=== PATIENT | female | born 1950 | race Caucasian/White ===

== ENCOUNTER → 2016-05-15 | Outpatient (CLI) | payer MEDICARE, OTHER ==
[2015-09-22 12:15] VITALS: BP 187/99
[~2016-05-15] MED LIST: AMLO5TAB4 PO; CARV3.12 PO; CLIN300C86 PO; COLE1TAB PO; COLE1TAB2 PO; Clonidine TD; Diphenoxylate Hcl/Atropine PO; IOHEXOL 240 MG/ML 50ML VIAL. ONE; IOHEXOL 300 MG/ML 75 ML VIAL. IV ONE; LIPA1CAP13 PO; LOSA100T6 PO; OMEP40CA5 PO; TRAM50TA PO; [UNRECOGNIZED DRUG - OTHER]; [UNRECOGNIZED DRUG - OTHER]
[2016-05-15 08:33] LABS: CREATININE 0.8 mg/dL (0.6-1.0); GFR 71.8
--- NOTE | 2016-05-15 10:15 | RAD ---
EXAM: Abdomen and pelvis CT with intravenous contrast. HISTORY: Right upper quadrant mass. Increased abdominal girth. Pain. TECHNIQUE: Computed tomographic images of the abdomen and pelvis were obtained following the administration of 72 cc Omnipaque 300 intravenous contrast. Multiplanar reformatting was performed. COMPARISON: 04/10/2014. FINDINGS: Evaluation of the lower thorax demonstrates two 3 mm nodular opacities within the right lower lobe (series 2, images 3 and 4). There is hepatic steatosis. There are 12 mm, 10 mm and 8 mm hypodense lesions within the right hepatic lobe. The liver is mildly enlarged. The gallbladder is surgically absent. There is common duct dilatation likely due to reservoir effect status post cholecystectomy. The pancreas, spleen, and adrenal glands are unremarkable. There is a 3.7 cm simple appearing cyst within the upper mid zone of the right kidney. There is a 10 mm simple appearing cyst within the upper pole the right kidney. There is a 4 mm suspected cortical cyst within the upper pole of the right kidney. No solid renal lesion is seen. There are findings consistent with partial colonic resection with an ileocolic anastomosis within the right lower quadrant and distal colonic anastomosis within the mid sigmoid colon. There is slight fatty stranding surrounding the anastomosis likely due to scarring. There is also segmental luminal narrowing at the level of the sigmoid anastomosis. No obstruction is seen. There is a tiny fat-containing ventral abdominal wall hernia. No pathologically enlarged lymph node is seen. There is aortic and aortic branch vessel atherosclerotic plaque. The bladder is decompressed. The uterus is surgically absent. There is no suspicious osseous lesion. There are a few benign bone islands. IMPRESSION: 1. Findings consistent with partial bowel resection, with suspected stable postoperative scarring around ileocolic and sigmoid anastomoses. There is segmental narrowing at the sigmoid anastomosis which is stable in appearance. No obstruction is seen. 2. Hepatomegaly and hepatic steatosis. 3. Small hypodense lesions within the liver, one of which may represent a hemangioma. The additional lesions are too small to characterize. In the absence of known malignancy, these are also likely cysts or hemangiomas. 4. Multiple hypodense lesions within the right kidney, the largest of which measures 3.7 cm and is consistent with a cyst. There is a 10 mm hypodense lesion within the upper pole the right kidney which is increased compared to the prior study. However, the attenuation of this lesion also favors a cyst. 5. Tiny fat containing ventral abdominal wall hernia. PQRS Compliance Statement: One or more of the following individualized dose reduction techniques were utilized for this examination: 1. Automated exposure control 2. Adjustment of the mA and/or kV according to patient size 3. Use of iterative reconstruction technique
== END | disposition home or self-care (01) ==
LOC: CT 08:03
PROVIDERS: ATTEND Surgery
DX: N28.1 Cyst of kidney, acquired (principal); K76.0 Fatty (change of) liver, not elsewhere classified; R16.0 Hepatomegaly, not elsewhere classified; K43.9 Ventral hernia without obstruction or gangrene; F17.200 Nicotine dependence, unspecified, uncomplicated; Z90.49 Acquired absence of other specified parts of digestive tract; Z90.710 Acquired absence of both cervix and uterus
CPT/HCPCS: 36415; 74177; 82565; Q9966; Q9967

== ENCOUNTER → 2018-01-08 | Outpatient (CLI) | payer MEDICARE ==
[2015-09-22 12:15] VITALS: BP 187/99
[~2018-01-08] MED LIST changes: +CLIN300C8 PO; -CLIN300C86 PO; -IOHEXOL 240 MG/ML 50ML VIAL. ONE; -IOHEXOL 300 MG/ML 75 ML VIAL. IV ONE; -LOSA100T6 PO; +LOSA100T7 PO
[2018-01-09 01:10] LABS: RHEUMATOID FACTOR <10.0 IU/mL (0.0-13.9); TRANSFERRIN 284 mg/dL (200-370)
[2018-01-09 21:09] LABS: CYCLIC CITRULLIN PEP AB 10 units (0-19)
== END | disposition home or self-care (01) ==
LOC: LAB 14:19
PROVIDERS: ATTEND Internal Medicine
DX: D64.9 Anemia, unspecified (principal); R51 Headache
CPT/HCPCS: 36415; 82728; 83540; 83550; 84466; 85651; 86038; 86140; 86200; 86431

== ENCOUNTER 2018-04-16 16:47 | Emergency (ER) | payer OTHER ==
[~2018-04-16] VITALS: Ht 162.6 cm; Wt 96.2 kg
[~2018-04-16 16:47] MED LIST changes: +LOSA100T14 PO; -LOSA100T7 PO
[2018-04-16] MEDS ORDERED: IV NORMAL SALINE 1,000ML 1,000 ML IV SCH (17:48)
[2018-04-16] MEDS ORDERED: IOHEXOL 240 MG/ML 50ML VIAL. ONE (17:55)
[2018-04-16 18:01] LABS: BASO # 0.1 x10^3/uL (0.0-0.2); BASO % 1 % (0-3); EOS % 0 % (0-3); HEMATOCRIT 42.9 % (36.0-47.0); HEMOGLOBIN 13.9 g/dL (12.0-15.5); LYMPH # 1.6 x10^3/uL (1.0-4.8); LYMPH % 11 % (24-48); MEAN CORPUSCULAR HEMOGLOBIN 29 pg (25-35); MEAN CORPUSCULAR HGB CONC 33 g/dL (31-37); MEAN CORPUSCULAR VOLUME 88 fL (79-100); MONO # 0.7 x10^3/uL (0.0-1.1); MONO % 5 % (0-9); NEUT # 12.3 x10^3uL (1.8-7.7); NEUT % 84 % (31-73); PLATELET COUNT 294 x10^3/uL (140-400); RED BLOOD COUNT 4.87 x10^6/uL (3.50-5.40); RED CELL DISTRIBUTION WIDTH 15.2 % (11.5-14.5); WHITE BLOOD COUNT 14.7 x10^3/uL (4.0-11.0)
[2018-04-16] MEDS ORDERED: ONDANSETRON PF 4 MG/2 ML VIAL. IV ONE ×3 (18:15→20:30)
--- NOTE | 2018-04-16 18:20 | PHYS DOC ---
Past History Past Medical History: Anemia, Arthritis, Hypertension, Other (KISHORE LAL MD) Past Surgical History: Appendectomy, Colectomy, , Other (KISHORE LAL MD) Additional Smoking Information: 4 per day Alcohol Use: Occasionally Drug Use: None (KISHORE LAL MD) Adult General Chief Complaint Chief Complaint: NAUSEA/VOMITING/DIARRHEA HPI HPI Patient is a 67 year old female who presents with complaining of nausea and vomiting and abdominal pain. Patient states she had more than 10 episodes of nonbloody vomiting for the last 24 hours with constant nausea and generalized abdominal cramping pain. Patient states she had a bowel movement before starting her pain yesterday and since then did not have any bowel movement or passing gas. Patient had history of abdominal surgery and intestinal obstruction previously. He denies fever and chills, chest pain, urinary symptom. (KISHORE LAL MD) Review of Systems Review of Systems Constitutional: Denies fever or chills [] Eyes: Denies change in visual acuity, redness, or eye pain [] HENT: Denies nasal congestion or sore throat [] Respiratory: Denies cough or shortness of breath [] Cardiovascular: No additional information not addressed in HPI [] GI: Reports abdominal pain, nausea, vomiting, constipation, denies bloody stools or diarrhea [] : Denies dysuria or hematuria [] Musculoskeletal: Denies back pain or joint pain [] Integument: Denies rash or skin lesions [] Neurologic: Denies headache, focal weakness or sensory changes [] Endocrine: Denies polyuria or polydipsia [] All other systems were reviewed and found to be within normal limits, except as documented in this note. (KISHORE LAL MD) Current Medications Current Medications Current Medications Medications (Trade) Dose Ordered Sig/Delisa Start Time Stop Time Status Last Admin Dose Admin Fentanyl Citrate (Fentanyl 2ml Vial) 50 mcg 1X ONCE 04/16/18 18:15 04/16/18 18:16 Iohexol (Omnipaque 240 Mg/ml) 50 ml STK-MED ONCE 04/16/18 17:55 04/16/18 17:56 DC Ondansetron HCl (Zofran) 4 mg 1X ONCE 04/16/18 18:15 04/16/18 18:16 Sodium Chloride 1,000 ml @ 1,000 mls/hr Q1H 04/16/18 17:48 04/16/18 18:47 (KISHORE LAL MD) Allergies Allergies Allergies Coded Allergies Type Severity Reaction Last Updated Verified No Known Drug Allergies 04/08/14 No (KISHORE LAL MD) Physical Exam Physical Exam Constitutional: Well developed, well nourished, moderate distress, non-toxic appearance. [] HENT: Normocephalic, atraumatic, oropharynx dry, no oral exudates, nose normal. [] Eyes: PERRLA, EOMI, conjunctiva normal, no discharge. [] Neck: Normal range of motion, no tenderness, supple, no stridor. [] Cardiovascular:Heart rate regular rhythm, no murmur [] Lungs & Thorax: Bilateral breath sounds clear to auscultation [] Abdomen: Bowel sounds hyperactive, soft, mildly distended abdomen with gas, generalized guarding, no masses, no pulsatile masses. [] Skin: Warm, dry, no erythema, no rash. [] Back: No tenderness, no CVA tenderness. [] Extremities: No tenderness, no cyanosis, no clubbing, ROM intact, no edema. [] Neurologic: Alert and oriented X 3, normal motor function, normal sensory function, no focal deficits noted. [] Psychologic: Affect normal, judgement normal, mood normal. [] (KISHORE LAL MD) Physical Exam Constitutional: Well developed, well nourished, appears uncomfortable HENT: Normocephalic, atraumatic, oropharynx dry Abdomen: Soft, Distended abdomen with diffuse tenderness on palpation Skin: Warm, dry, no erythema, no rash. [] Neurologic: Alert and oriented X 3, no focal deficits noted. [] (DIOR RAMIREZ DO) Current Patient Data Vital Signs Vital Signs Date Time Temp Pulse Resp B/P (MAP) Pulse Ox O2 Delivery O2 Flow Rate FiO2 04/16/18 16:53 98.4 89 20 97 Room Air Lab Results Laboratory Tests Test 04/16/18 17:48 White Blood Count 14.7 x10^3/uL (4.0-11.0) H Red Blood Count 4.87 x10^6/uL (3.50-5.40) Hemoglobin 13.9 g/dL (12.0-15.5) Hematocrit 42.9 % (36.0-47.0) Mean Corpuscular Volume 88 fL (79-100) Mean Corpuscular Hemoglobin 29 pg (25-35) Mean Corpuscular Hemoglobin Concent 33 g/dL (31-37) Red Cell Distribution Width 15.2 % (11.5-14.5) H Platelet Count 294 x10^3/uL (140-400) Neutrophils (%) (Auto) 84 % (31-73) H Lymphocytes (%) (Auto) 11 % (24-48) L Monocytes (%) (Auto) 5 % (0-9) Eosinophils (%) (Auto) 0 % (0-3) Basophils (%) (Auto) 1 % (0-3) Neutrophils # (Auto) 12.3 x10^3uL (1.8-7.7) H Lymphocytes # (Auto) 1.6 x10^3/uL (1.0-4.8) Monocytes # (Auto) 0.7 x10^3/uL (0.0-1.1) Eosinophils # (Auto) 0.0 x10^3/uL (0.0-0.7) Basophils # (Auto) 0.1 x10^3/uL (0.0-0.2) (KISHORE LAL MD) EKG EKG [] (KISHORE LAL MD) Radiology/Procedures Radiology/Procedures [] (KISHORE LAL MD) Radiology/Procedures PROCEDURE: CT ABD PELV W/ORAL&IV CONTRAST PQRS Compliance statement: One or more of the following individualized dose reduction techniques were utilized for this examination: 1. Automated exposure control. 2. Adjustment of the mA and/or kV according to patient size. 3. Use of iterative reconstruction technique. Indication:Omni 300 75cc: Abdominal pain, nausea and vomiting. Hx: Colostomy reversal, cholecystectomy, appendectomy TECHNIQUE: CT abdomen and pelvis with IV contrast with multiplanar reformats. COMPARISON: 05/15/2016 FINDINGS: Heart is normal in size. No pericardial or pleural effusion. Clear lung bases. Stable 6 mm low attenuating lesion in segment 7 of the liver most likely hemangioma. Otherwise, liver, spleen, pancreas, adrenals within normal limits. Status post cholecystectomy. Couple of simple cysts in the right kidney, the largest measuring 3.5 x 3.2 cm. No nephrolithiasis or hydronephrosis. No enlarged retroperitoneal or pelvic adenopathy. No free pelvic fluid or ascites. Anastomotic sutures are seen in the sigmoid colon. Colon is within normal limits. Ileocolic anastomosis in the right lower quadrant. Dilated small bowel loops are seen with air-fluid levels with a diameter measuring 4.1 cm. that there is a focal narrowing of the distal small bowel with dilation of the proximal bowel loop with fecal material. No pneumoperitoneum or pneumatosis intestinalis. Status post hysterectomy. Urinary bladder demonstrates no radiopaque stones. No suspicious bony lesion. IMPRESSION: 1. Findings of small bowel obstruction with transition point most likely in the distal small bowel proximal to the ileocolic anastomosis. Electronically signed by: Ciro Robles DO (04/16/2018 9:11 PM) [facility] PROCEDURE: PORTABLE CHEST 1V Indication:NGT placement TECHNIQUE:Portable AP chest X-ray and single AP view of the abdomen COMPARISON: None FINDINGS: NG tube is seen with its tip in the fundus of the stomach. Heart is normal in size. Lungs are clear. No abnormally dilated bowel loops. Visualized bony thorax within normal limits. IMPRESSION: Tip of the NG tube is in the fundus of the stomach. Electronically signed by: Ciro Robles DO (04/16/2018 10:46 PM) [facility] (DIOR RAMIREZ DO) Course & Med Decision Making Course & Med Decision Making Pertinent Labs and Imaging studies are pending. Evaluation of patient in ER showed 67-year-old female patient presented to ER with complaining of nausea and vomiting and abdominal pain and not having bowel movements and passing gas for the last 24 hours. Patient had history of previous abdominal surgery and intestinal obstruction. With fluid, Zofran, fentanyl was started. Labs and CT abdomen and pelvis is pending. Patient care transferred to Dr. Ramirez at 1800. (KISHORE LAL MD) Course & Med Decision Making Sign out received from Dr. Lal for patient with abdominal pain with N/V. Hx of prior SBO requiring surgical intervention. Labs reviewed. IVF hydration provided. Pain/nausea addressed. CT abd/pelvis pending. Patient seen and evaluated by myself. NGT placed for decompression. XR confirmed good placement. Patient requiring admission for further evaluation and treatment. Discussed with Dr. Dailey (hospitalist) who is in agreement with admission but requests would need to transfer to [place] for admission due to need for general surgery consultation. Discussed with Dr. Staley (Gen Surg at [place]) who is in agreement. Discussed findings and plan with patient and family, who acknowledge understanding and agreement. (DIOR RAMIREZ DO) Dragon Disclaimer Dragon Disclaimer This electronic medical record was generated, in whole or in part, using a voice recognition dictation system. (KISHORE LAL MD) Departure Departure: Impression: Primary Impression: Small bowel obstruction Disposition: 05 TRANSFER OTHER ([facility]) Admitting Physician: Wilfredo Dailye (DIOR RAMIREZ DO) Condition: STABLE Referrals: LUZ TINAJERO DO (PCP) KISHORE LAL MD Apr 16, 2018 18:20 DIOR RAMIREZ DO Apr 16, 2018 21:17
[2018-04-16 18:43] LABS: ALBUMIN 3.5 g/dL (3.4-5.0); ALBUMIN/GLOBULIN RATIO 0.7 (1.0-1.7); CREATININE 1.1 mg/dL (0.6-1.0); GFR 49.4; POTASSIUM 4.8 mmol/L (3.5-5.1); TOTAL BILIRUBIN 1.6 mg/dL (0.2-1.0); TOTAL PROTEIN 8.6 g/dL (6.4-8.2)
[2018-04-16] MEDS ORDERED: FAMOTIDINE 20 MG/2 ML VIAL IVP ONE (19:00)
[2018-04-16 20:00] LABS: BACTERIA,URINE MOD /HPF (0-FEW); BILIRUBIN,URINE MOD (NEG); CLARITY,URINE CLOUDY; COLOR,URINE AMBER; GLUCOSE,URINE NEG (NEG); NITRITE,URINE NEG (NEG); RBC,URINE TNTC /HPF (0-2); UROBILINOGEN,URINE 1 mg/dL (0.2 mg/dL)
[2018-04-16 20:01] LABS: AMORPHOUS SEDIMENT,UR PRESENT /HPF; SQUAMOUS EPITHELIAL CELL,UR MOD /LPF
[2018-04-16] MEDS ORDERED: MORPHINE SULFATE 4 MG/ML DISP.SYRIN. IV ONE (20:15)
[2018-04-16] MEDS ORDERED: IOHEXOL 300 MG/ML 75 ML VIAL. IV ONE (20:45)
--- NOTE | 2018-04-16 21:13 | RAD ---
PQRS Compliance statement: One or more of the following individualized dose reduction techniques were utilized for this examination: 1. Automated exposure control. 2. Adjustment of the mA and/or kV according to patient size. 3. Use of iterative reconstruction technique. Indication:Omni 300 75cc: Abdominal pain, nausea and vomiting. Hx: Colostomy reversal, cholecystectomy, appendectomy TECHNIQUE: CT abdomen and pelvis with IV contrast with multiplanar reformats. COMPARISON: 05/15/2016 FINDINGS: Heart is normal in size. No pericardial or pleural effusion. Clear lung bases. Stable 6 mm low attenuating lesion in segment 7 of the liver most likely hemangioma. Otherwise, liver, spleen, pancreas, adrenals within normal limits. Status post cholecystectomy. Couple of simple cysts in the right kidney, the largest measuring 3.5 x 3.2 cm. No nephrolithiasis or hydronephrosis. No enlarged retroperitoneal or pelvic adenopathy. No free pelvic fluid or ascites. Anastomotic sutures are seen in the sigmoid colon. Colon is within normal limits. Ileocolic anastomosis in the right lower quadrant. Dilated small bowel loops are seen with air-fluid levels with a diameter measuring 4.1 cm. that there is a focal narrowing of the distal small bowel with dilation of the proximal bowel loop with fecal material. No pneumoperitoneum or pneumatosis intestinalis. Status post hysterectomy. Urinary bladder demonstrates no radiopaque stones. No suspicious bony lesion. IMPRESSION: 1. Findings of small bowel obstruction with transition point most likely in the distal small bowel proximal to the ileocolic anastomosis. Electronically signed by: Ciro Robles DO (04/16/2018 9:11 PM) [facility]
[2018-04-16] MEDS ORDERED: LIDOCAINE 2% 20 ML VIAL. ONE (21:43)
[2018-04-16] MEDS ORDERED: LIDOCAINE 2% 20 ML VIAL. IJ ONE (22:00)
--- NOTE | 2018-04-16 22:49 | RAD ---
Indication:NGT placement TECHNIQUE:Portable AP chest X-ray and single AP view of the abdomen COMPARISON: None FINDINGS: NG tube is seen with its tip in the fundus of the stomach. Heart is normal in size. Lungs are clear. No abnormally dilated bowel loops. Visualized bony thorax within normal limits. IMPRESSION: Tip of the NG tube is in the fundus of the stomach. Electronically signed by: Ciro Robles DO (04/16/2018 10:46 PM) [facility]
[2018-04-16 23:34] VITALS: BP 129/71
== END 2018-04-16 23:43 | disposition short-term general hospital (02) ==
LOC: ER 16:47
DX: K56.609 Unspecified intestinal obstruction, unspecified as to partial versus complete obstruction (principal); R11.2 Nausea with vomiting, unspecified; F17.200 Nicotine dependence, unspecified, uncomplicated; M19.90 Unspecified osteoarthritis, unspecified site; I10 Essential (primary) hypertension; Z86.2 Personal history of diseases of the blood and blood-forming organs and certain disorders involving the immune mechanism; Z90.89 Acquired absence of other organs; Z90.49 Acquired absence of other specified parts of digestive tract; Z98.890 Other specified postprocedural states
CPT/HCPCS: 36415; 43752; 71045; 74177; 80053; 81001; 82553; 83690; 84484; 85025; 87086; 96361; 96374; 96375; 96376; 99285; J2060; J2270; J2405; J3010; J3490; Q9967; 87186; J2001; J7030

== ENCOUNTER → 2019-04-01 | Outpatient (CLI) | payer MEDICARE, OTHER ==
[~2019-04-01] MED LIST changes: +OMEP40CA45 PO; -OMEP40CA5 PO
--- NOTE | 2019-04-02 13:21 | CARD ---
MR#: [id number] Date of Study: 04/01/2019 Ordering Physician: LUZ TINAJERO, Referring Physician: LUZ TINAJERO Tech: Maria Luz Palafox LAURENCE APPROVED REPORT EXAM: Two-dimensional and M-mode echocardiogram with Doppler and color Doppler. Other Information Quality : AverageHR: 60bpm Rhythm : NSRTechnically limited study due to body habitus. INDICATION Murmur 2D DIMENSIONS RVDd2.9 (2.9-3.5cm)Left Atrium(2D)3.4 (1.6-4.0cm) IVSd1.3 (0.7-1.1cm)Aortic Root(2D)3.0 (2.0-3.7cm) LVDd4.8 (3.9-5.9cm)LVOT Diameter2.0 (1.8-2.4cm) PWd1.1 (0.7-1.1cm)LVDs2.8 (2.5-4.0cm) FS (%) 41.4 %SV78.1 ml LVEF(%)72.2 (>50%) M-Mode DIMENSIONS Left Atrium(MM)3.54 (2.5-4.0cm)Aortic Root3.21 (2.2-3.7cm) Aortic Valve AoV Peak Yoav.145.4cm/sAoV VTI29.8cm AO Peak GR.8.5mmHgLVOT Peak Yoav.109.2cm/s LVOT VTI 21.18cmAO Mean GR.4mmHg JASON (VMAX)2.20qs0END (VTI)2.23cm2 Mitral Valve MV E Tvmimadq69.7cm/sMV DECEL FUCS192sx MV A Odgkvldf98.6cm/sE/A Ratio0.8 Pulmonary Valve PV Peak Vcrnahym003.8cm/sPV Peak Grad.4mmHg Tricuspid Valve TR P. Lwjggozh134pm/sRAP WBOYPUEK5gkDb TR Peak Gr.86qkClZXVY01upFq LEFT VENTRICLE The left ventricle is normal size. There is mild concentric left ventricular hypertrophy. The left ve ntricular systolic function is normal and the ejection fraction is within normal range. The Ejection Fraction is 65-70%. There is grossly normal LV segmental wall motion. Technically very limited images Transmitral Doppler flow pattern is Grade I-abnormal relaxation pattern. RIGHT VENTRICLE The right ventricle is normal size. There is normal right ventricular wall thickness. The right ventr icular systolic function is normal. ATRIA The left atrium size is normal. The right atrium size is normal. The interatrial septum is intact wit h no evidence for an atrial septal defect or patent foramen ovale as noted on 2-D or Doppler imaging. AORTIC VALVE Not well visualized Doppler and Color Flow revealed no significant aortic regurgitation. There is no significant aortic valvular stenosis. MITRAL VALVE Not well visualized. There is no evidence of mitral valve prolapse. There is no mitral valve stenosis . Doppler and Color-flow revealed trace mitral regurgitation. TRICUSPID VALVE Not well visualized. Doppler and Color Flow revealed trace tricuspid regurgitation. The PA pressure w as estimated at 29 mmHg. There is no tricuspid valve prolapse or vegetation. There is no tricuspid va lve stenosis. PULMONIC VALVE The pulmonic valve is not well visualized. GREAT VESSELS The aortic root is normal in size. The ascending aorta is normal in size. The IVC is normal in size a nd collapses >50% with inspiration. PERICARDIAL EFFUSION There is no evidence of significant pericardial effusion. Critical Notification Critical Value: No <Conclusion> The left ventricular systolic function is normal and the ejection fraction is within normal range. Th e Ejection Fraction is 65-70%. There is grossly normal LV segmental wall motion. Technically very limited images No clear valvular disease noted, although the images are limited. Signed by : Eloy Rendon, Electronically Approved : 04/01/2019 09:35:23
== END | disposition home or self-care (01) ==
LOC: ECHO 08:14
PROVIDERS: ATTEND Internal Medicine
DX: I11.9 Hypertensive heart disease without heart failure (principal)
CPT/HCPCS: 93306

== ENCOUNTER 2019-05-05 10:39 | Emergency (ER) | payer MEDICARE, OTHER ==
[~2019-05-05] VITALS: Ht 162.6 cm; Wt 99.0 kg
[2019-05-05] MEDS ORDERED: IV NORMAL SALINE 1,000ML 1,000 ML IV SCH (10:44)
--- NOTE | 2019-05-05 10:49 | PHYS DOC ---
Past History Past Medical History: Anemia, Arthritis, Hypertension, Other Past Surgical History: Appendectomy, Colectomy, , Other Alcohol Use: Occasionally Drug Use: None Adult General Chief Complaint Chief Complaint: Chest pain HPI HPI Patient is a 68-year-old female with past medical history significant for COPD not requiring supplemental oxygen presents secondary to progressive left-sided chest pressure for the last 3 days it is currently rated 5/10 with radiation to left arm. No medications taken prior to arrival. Patient went to her primary care physician's office and was sent to the ER for further evaluation. In office her oxygen saturation was 97% on room air. Patient denies recent cough or congestion. No fever or chills. Review of Systems Review of Systems All other systems were reviewed and found to be within normal limits, except as documented in this note. Allergies Allergies Allergies Coded Allergies Type Severity Reaction Last Updated Verified No Known Drug Allergies 04/08/14 No Physical Exam Physical Exam Constitutional: Well developed, well nourished, slightly anxious, non-toxic appearance. [] HENT: Normocephalic, atraumatic, bilateral external ears normal, oropharynx moist, no oral exudates, nose normal. [] Eyes: PERRLA, EOMI, conjunctiva normal, no discharge. [] Neck: Normal range of motion, no tenderness, supple, no stridor. [] Cardiovascular:Heart rate regular rhythm, no murmur [] Lungs & Thorax: Bilateral breath sounds clear to auscultation [] Abdomen: Bowel sounds normal, soft, no tenderness, no masses, no pulsatile masses. [] Skin: Warm, dry, no erythema, no rash. [] Back: No tenderness, no CVA tenderness. [] Extremities: No tenderness, no cyanosis, no clubbing, ROM intact, no edema. [] Neurologic: Alert and oriented X 3, normal motor function, normal sensory function, no focal deficits noted. [] Psychologic: Affect normal, judgement normal, mood normal. [] EKG EKG EKG shows a sinus rhythm with occasional PVC, no ST elevation, heart rate 85, normal intervals. [] Radiology/Procedures Radiology/Procedures EXAM: PORTABLE CHEST 1V INDICATION: Chest pain. TECHNIQUE: Single view COMPARISON: 04/16/2018 FINDINGS: The enteric tube previously present has since been removed. The heart size is normal. The great vessels appear unremarkable. There is no hilar or mediastinal mass. The lungs are clear. There is no pleural effusion or pneumothorax. There are no significant osseous abnormalities. IMPRESSION: No active cardiopulmonary disease. [] Course & Med Decision Making Course & Med Decision Making Pertinent Labs and Imaging studies reviewed. (See chart for details) 1048: Patient seen for chest pain. We will give aspirin and get a cardiac work- up. Give 1 L IV fluid. Give sublingual nitro. EKG shows sinus rhythm with occasional PVC and no ST elevation. 1201: Patient's work-up is negative. Her chest pain is gone. Her blood pressure remains elevated but she has not taken her home medications. At this time we will discharge her home and she is to take her morning medications and follow-up with her doctor in 3 to 5 days for reevaluation. Dragon Disclaimer Dragon Disclaimer This electronic medical record was generated, in whole or in part, using a voice recognition dictation system. Departure Departure: Impression: Primary Impression: Atypical chest pain Additional Impression: Hypertension Disposition: 01 HOME, SELF-CARE Condition: IMPROVED Referrals: LUZ TINAJERO DO (PCP) Please follow-up in 3 to 5 days for reevaluation of blood pressure and chest pain. Problem Qualifiers YOUSUF ORTIZ DO May 05, 2019 10:49
[2019-05-05] MEDS: NITROGLYCERIN SUBLINGUAL 0.4 MG BOTTLE OF 25. SL PRN ×3 (10:50→11:00)
[2019-05-05] MEDS ORDERED: ASPIRIN 81 MG TAB.CHEW PO ONE (11:00)
[2019-05-05 11:15] LABS: BASO % 1 % (0-3); EOS # 0.1 x10^3/uL (0.0-0.7); EOS % 2 % (0-3); HEMATOCRIT 37.9 % (36.0-47.0); HEMOGLOBIN 12.6 g/dL (12.0-15.5); LYMPH # 1.5 x10^3/uL (1.0-4.8); LYMPH % 27 % (24-48); MEAN CORPUSCULAR HEMOGLOBIN 30 pg (25-35); MEAN CORPUSCULAR HGB CONC 33 g/dL (31-37); MEAN CORPUSCULAR VOLUME 90 fL (79-100); MONO # 0.4 x10^3/uL (0.0-1.1); MONO % 7 % (0-9); NEUT # 3.6 x10^3uL (1.8-7.7); NEUT % 64 % (31-73); PLATELET COUNT 153 x10^3/uL (140-400); RED BLOOD COUNT 4.21 x10^6/uL (3.50-5.40); RED CELL DISTRIBUTION WIDTH 15.7 % (11.5-14.5); WHITE BLOOD COUNT 5.6 x10^3/uL (4.0-11.0)
[2019-05-05 11:26] LABS: CALCIUM 8.7 mg/dL (8.5-10.1); CREATININE 0.8 mg/dL (0.6-1.0); GFR 71.1; POTASSIUM 3.8 mmol/L (3.5-5.1)
--- NOTE | 2019-05-05 11:37 | RAD ---
EXAM: PORTABLE CHEST 1V INDICATION: Chest pain. TECHNIQUE: Single view COMPARISON: 04/16/2018 FINDINGS: The enteric tube previously present has since been removed. The heart size is normal. The great vessels appear unremarkable. There is no hilar or mediastinal mass. The lungs are clear. There is no pleural effusion or pneumothorax. There are no significant osseous abnormalities. IMPRESSION: No active cardiopulmonary disease. Electronically signed by: Kiko So MD (05/05/2019 11:33 AM) [id number]
[2019-05-05 11:43] LABS: MAGNESIUM 1.7 mg/dL (1.8-2.4)
[2019-05-05 12:23] VITALS: BP 207/89
--- NOTE | 2019-05-05 17:46 | EKG ---
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
== END 2019-05-05 12:27 | disposition home or self-care (01) ==
LOC: ER 10:39
DX: R07.89 Other chest pain (principal); I10 Essential (primary) hypertension; M19.90 Unspecified osteoarthritis, unspecified site; Z86.2 Personal history of diseases of the blood and blood-forming organs and certain disorders involving the immune mechanism
CPT/HCPCS: 36415; 71045; 80048; 82553; 83735; 83880; 84484; 85025; 85610; 85730; 93005; 99285-25; J7030

== ENCOUNTER 2019-05-19 23:14 | Emergency (ER) | payer MEDICARE ==
[~2019-05-19] VITALS: Ht 162.6 cm; Wt 99.0 kg
[2019-05-19] MEDS ORDERED: ONDANSETRON PF 4 MG/2 ML VIAL. ONE (23:24)
[2019-05-19] MEDS ORDERED: MORPHINE SULFATE 10 MG/ML SYRINGE. ONE (23:24)
--- NOTE | 2019-05-19 23:30 | PHYS DOC ---
Past History Past Medical History: No Pertinent History, Anemia, Arthritis, COPD, GERD, Hypertension, UTI Past Surgical History: Appendectomy, Colectomy, , Hysterectomy, Oophorectomy, Other Past Surgical History History of 15 abdomen surgeries- Smoking: Cigarettes Alcohol Use: None Drug Use: None Adult General Chief Complaint Chief Complaint: "... I ve been having pain for years.. I have too many adhesions.. but the pain has been so bad the last 24 hours... I ve been vomiting and can't keep anything down.. I am on a no cut list.. because of all my adhesions...but I so sick... in so much pain..." HPI HPI Patient is a 68 year old female who presents with above hx and abdomen pain. Patient has history of previous small bowel and colon obstructions secondary from adhesions / and previous surgeries. Patient has history of previous incisional hernias. Patient estimates she has had approximately 15 abdomen surgeries including a . Patient has had no passage of gas in the last 24 hours. Patient reports feeling of distention and has been vomiting bile colored material all day. Patient denies any intake of bad food. Patient denies any specific ill contacts. Patient has not had any recent travel outside the [place] area. Has past medical history of anemia,diabetes, arthritis, hyper tension, tobacco abuse, COPD, chest pain, CADz and dysrhythmia. Pt. follows with Dr. Malorie Tinajero as primary.. Pt. in past followed with Dr. Soto he advised after last colonoscopy, colostomy surgery and colon repair to not get further surgeries unless emergent. Patient unsure of dates. Thinks lasts surgeries occurred in 2011 and took place at [facility]. Unsure of last surgeon's name. Had surgery by a Dr. Trevizo at [facility]. Has followed with here at [facility] with Cardiology 05/05/19 and repeat Cardiac Echo 04-01-2019 Dr. Rendon. Review of Systems Review of Systems Constitutional: Subjective complaints of fever or chills [] Eyes: Denies change in visual acuity, redness, or eye pain [] HENT: Chronic nasal congestion Respiratory: Complaints of cough or shortness of breath []Chronic Bronchitis/ COPD - no more than her base line. Cardiovascular: No additional information not addressed in HPI [] GI: Complaints of generalized abdominal pain, nausea, vomiting bile. No passage of gas per rectum x 24 hrs. ,. Denies bloody stools or diarrhea [] : Denies dysuria or hematuria [] Musculoskeletal: Complains of chronic back pain and joint pain [] Integument: Denies rash or skin lesions [] Neurologic: Denies headache, focal weakness or sensory changes [] Endocrine: Denies polyuria or polydipsia [] All other systems were reviewed and found to be within normal limits, except as documented in this note. Family History Family History Noncontributory Current Medications Current Medications Current Medications Medications (Trade) Dose Ordered Sig/Delisa Start Time Stop Time Status Last Admin Dose Admin Morphine Sulfate (Morphine 10mg Syringe) 10 mg STK-MED ONCE 05/19/19 23:24 05/19/19 23:25 DC Ondansetron HCl (Zofran) 4 mg STK-MED ONCE 05/19/19 23:24 05/19/19 23:25 DC Allergies Allergies Allergies Coded Allergies Type Severity Reaction Last Updated Verified No Known Drug Allergies 04/08/14 No Physical Exam Physical Exam Constitutional: in acute distress,ill appearance. Active vomiting or spitting up yellow gastric material. [] HENT: Normocephalic, atraumatic, bilateral external ears normal, oropharynx dry, no oral exudates, nose and left naris edematous Eyes: PERRLA, EOMI, conjunctiva normal, no discharge. Glasses Neck: Normal range of motion, no tenderness, supple, no stridor. [] Cardiovascular: Tachycardia Heart rate regular rhythm, no murmur []PMI to the left. Occasional PVC per monitor Lungs & Thorax: Bilateral breath sounds equal apex with scattered wheezes on auscultation. Decreased basilar sounds. [] Abdomen: Bowel sounds increased, tense abd., generalized tenderness, no masses, no pulsatile masses. []Rebound to left upper and right lower. Tympanic. Very distended. Multiple old surgery scars. Retching spitting up bile colored fluids Skin: Warm, diaphoretic, no erythema, no rash. [] Back: No tenderness, no CVA tenderness. [] Extremities: No tenderness, no cyanosis, no clubbing, ROM intact, no edema. Mild psoas on left and right. Neurologic: Alert and oriented X 3, moves extremities on request, has distal sensory, no focal deficits noted. [] Psychologic: Affect anxious, judgement normal, mood depressed. Some confusions and memory issues. EKG EKG EKG shows a sinus tachycardia with occasional PVC. Left axis deviation and a fascicular block. No findings of acute STEMI of contralateral changes[] Radiology/Procedures Radiology/Procedures [address] [address] IMAGING REPORT Signed PATIENT: NELI BOOTH ACCOUNT: [id number] : 1950 LOCATION: ER AGE: 68 SEX: F EXAM STATUS: REG ER ORD. PHYSICIAN: LINDA TREJO MD REASON: Suspect SBO distal Small bowel, ABDOMEN PAIN, N/V. X 2 DAYS. PROCEDURE: CT ABD PEL W/ORAL CONTRST ONLY INDICATION: Abdomen pain COMPARISON: April 16, 2018 TECHNIQUE: Axial CT images obtained through the abdomen and pelvis. One or more of the following individualized dose reduction techniques were utilized for this examination: 1. Automated exposure control; 2. Adjustment of the mA and/or kV according to patient size; 3. Use of iterative reconstruction technique. FINDINGS: Coronary artery calcific atherosclerosis partially seen. Enteric tube with tip in stomach. Calcific atherosclerosis. Fat-containing inguinal hernias are suspected. There are some vessels seen anterior to the liver which could be from collateral formation. No peripancreatic fluid collection. Spleen unremarkable. Urinary bladder is largely decompressed. No hydronephrosis. Cystic lesion right kidney. Postoperative changes to the distal colon. Dilated loops of small bowel identified with distal decompression degenerative changes the spine with multilevel central canal and neural foraminal stenosis. IMPRESSION: * Dilated small bowel loops with distal decompression which can be seen with small bowel obstruction. * There is some vessels seen anterior to the liver which could be secondary to collateral vessel formation. Would correlate for possible causes such as cirrhosis and portal hypertension. * Low-density lesions the right kidney which could be cystic in nature but incompletely evaluated on this exam. Electronically signed by: Marianne Carbajal MD (05/20/2019 5:18 AM) [id number] DICTATED AND SIGNED BY: MARIANNE CARBAJAL MD DATE: 05/20/19 05 CC: LINDA TREJO MD; LUZ TINAJERO DO ~ [[address] [address] IMAGING REPORT Signed PATIENT: NELI BOOTH ACCOUNT: [id number] : 1950 LOCATION: ER AGE: 68 SEX: F EXAM STATUS: REG ER ORD. PHYSICIAN: LINDA TREJO MD REASON: ABDOMEN PAIN, N/V, X 2 DAYS PROCEDURE: ACUTE ABDOMEN SERIES INDICATION: Abdomen pain COMPARISON: April 16, 2018 IMPRESSION: 4 views of chest and abdomen obtained. Calcific atherosclerosis. No new region of focal airspace consolidation. Air scattered throughout large and small bowel in a nonspecific but not grossly obstructive pattern. Electronically signed by: Marianne Carbajal MD (05/20/2019 12:11 AM) [id number] DICTATED AND SIGNED BY: MARIANNE CARBAJAL MD DATE: 05/20/1910 CC: LINDA TREJO MD; LUZ TINAJERO DO ~ ][address] [address] IMAGING REPORT Signed PATIENT: NELI BOOTH ACCOUNT: [id number] : 1950 LOCATION: ER AGE: 68 SEX: F EXAM STATUS: REG ER ORD. PHYSICIAN: LINDA TREJO MD REASON: NG PLACEMENT. PROCEDURE: KUB INDICATION: Enteric tube placement COMPARISON: Previous day IMPRESSION: Single view abdomen obtained. Single enteric tube with tip at left upper quadrant the abdomen at expected location of the stomach. Electronically signed by: Marianne Carbajal MD (05/20/2019 1:35 AM) [id number] DICTATED AND SIGNED BY: MARIANNE CARBAJAL MD DATE: 05/20/19 013 CC: LINDA TREJO MD; LUZ TINAJERO Course & Med Decision Making Course & Med Decision Making Pertinent Labs and Imaging studies reviewed. (See chart for details) I NG placed [id number] hrs. Place on suction, Use of Lidocaine via MAD, jell and Afrin. NG adequate position by Abd. film. Discussed with Dr. Dailey and Dr. Yeboah- pt presentation, testing and tx. plan. Pt. to be transferred to [facility]. Continue NG interment suction. 0530 hrs. Impression.: 1. Abdomen Pain 2. Nausea / Vomiting- Ileus appears Small Bowel 3. DM = gluc. 150 4. Elevated BUN/ Creat 27/1.6 Dehydrated 5. UTI 6. Elevated D Pepe - 0.6, 1.9 T and Alk. Phos 169 7. Elevated Lactic Acid = 3.2 repeat = 2.0 8. Leukocytosis 15.4 & 69 Segs 9. Hx. COPD 10.Hx CADz [] Dragon Disclaimer Dragon Disclaimer This electronic medical record was generated, in whole or in part, using a voice recognition dictation system. Departure Departure: Disposition: 01 HOME/RESIDENCE PRIOR TO ADM Condition: STABLE Referrals: LUZ TINAJERO DO (PCP) Dragon Disclaimer This chart was dictated in whole or in part using Voice Recognition software in a busy, high-work load, and often noisy Emergency Department environment. It may contain unintended and wholly unrecognized errors or omissions. Dragon Disclaimer This chart was dictated in whole or in part using Voice Recognition software in a busy, high-work load, and often noisy Emergency Department environment. It may contain unintended and wholly unrecognized errors or omissions. LINDA TREJO MD May 19, 2019 23:30
[2019-05-19] MEDS ORDERED: FAMOTIDINE 20 MG/2 ML VIAL IVP ONE (23:45)
[2019-05-19] MEDS ORDERED: IV RINGERS SOLUTION,LACTATED 1,000 ML IV SCH (23:45)
[2019-05-19] MEDS ORDERED: ONDANSETRON PF 4 MG/2 ML VIAL. IVP ONE (23:45)
[2019-05-20 00:03] LABS: BASO # 0.1 x10^3/uL (0.0-0.2); BASO % 0 % (0-3); EOS # 0.1 x10^3/uL (0.0-0.7); EOS % 0 % (0-3); HEMATOCRIT 46.1 % (36.0-47.0); HEMOGLOBIN 15.4 g/dL (12.0-15.5); LYMPH # 2.6 x10^3/uL (1.0-4.8); LYMPH % 17 % (24-48); MEAN CORPUSCULAR HEMOGLOBIN 30 pg (25-35); MEAN CORPUSCULAR HGB CONC 34 g/dL (31-37); MEAN CORPUSCULAR VOLUME 90 fL (79-100); MONO # 1.4 x10^3/uL (0.0-1.1); MONO % 9 % (0-9); NEUT # 11.3 x10^3uL (1.8-7.7); NEUT % 73 % (31-73); PLATELET COUNT 263 x10^3/uL (140-400); RED BLOOD COUNT 5.12 x10^6/uL (3.50-5.40); RED CELL DISTRIBUTION WIDTH 15.9 % (11.5-14.5)
[2019-05-20 00:10] LABS: CALCIUM 10.2 mg/dL (8.5-10.1); CREATININE 1.6 mg/dL (0.6-1.0); POTASSIUM 4.7 mmol/L (3.5-5.1)
[2019-05-20 00:12] LABS: BARBITURATES NEG (NEG); BENZODIAZEPINES NEG (NEG); CANNABINOIDS NEG (NEG); COCAINE NEG (NEG); METHADONE NEG (NEG); OPIATES NEG (NEG); PHENCYCLIDINE NEG (NEG)
[2019-05-20 00:14] LABS: AMPHETAMINE/METHAMPHETAMINE NEG (NEG)
--- NOTE | 2019-05-20 00:14 | RAD ---
INDICATION: Abdomen pain COMPARISON: April 16, 2018 IMPRESSION: 4 views of chest and abdomen obtained. Calcific atherosclerosis. No new region of focal airspace consolidation. Air scattered throughout large and small bowel in a nonspecific but not grossly obstructive pattern. Electronically signed by: Arthur Carbajal MD (05/20/2019 12:11 AM) [id number]
[2019-05-20 00:16] LABS: DIRECT BILIRUBIN 0.6 mg/dL (0.0-0.2); TOTAL BILIRUBIN 1.9 mg/dL (0.2-1.0)
[2019-05-20 00:21] LABS: CLARITY,URINE CLEAR; COLOR,URINE YELLOW
--- NOTE | 2019-05-20 00:21 | EKG ---
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
[2019-05-20 00:22] LABS: BACTERIA,URINE FEW /HPF (0-FEW); BILIRUBIN,URINE NEG (NEG); GLUCOSE,URINE NEG (NEG); NITRITE,URINE POS (NEG); RBC,URINE 0 /HPF (0-2); SQUAMOUS EPITHELIAL CELL,UR MOD /LPF; UROBILINOGEN,URINE 0.2 mg/dL (0.2 mg/dL)
[2019-05-20] MEDS ORDERED: IOHEXOL 240 MG/ML 50ML VIAL. PO ONE (00:30)
[2019-05-20] MEDS ORDERED: CONTRAST GIVEN MC PRN (00:30)
[2019-05-20] MEDS ORDERED: IOHEXOL 300 MG/ML 75 ML VIAL. IV ONE (00:30)
[2019-05-20] MEDS ORDERED: OXYMETAZOLINE 0.05% NASAL SPRAY 30ML BOTTLE. NS ONE ×2 (00:39→01:30)
[2019-05-20 01:26] LABS: % BANDS 8 % (0-9); % LYMPHS 20 % (24-48); % MONOS 3 % (0-10); % SEGS 69 % (35-66); PLT ESTIMATE ADEQUATE (ADEQUATE)
[2019-05-20 01:28] LABS: WHITE BLOOD COUNT 15.4 x10^3/uL (4.0-11.0)
[2019-05-20] MEDS ORDERED: IV RINGERS SOLUTION,LACTATED 1,000 ML IV ONE ×2 (01:30)
[2019-05-20] MEDS ORDERED: BARIUM SULFATE 2.1% 450 ML SUSP PO ONE (01:30)
[2019-05-20] MEDS ORDERED: MORPHINE SULFATE 10 MG/ML SYRINGE. SQ ONE (01:30)
[2019-05-20] MEDS ORDERED: diphenhydrAMINE 50 MG/ML VIAL IVP ONE (01:30)
[2019-05-20] MEDS ORDERED: cefTRIAXone SODIUM 1 GM VIAL ONE (01:35)
[2019-05-20] MEDS ORDERED: IV NORMAL SALINE 50ML 50 ML ONE (01:35)
--- NOTE | 2019-05-20 01:38 | RAD ---
INDICATION: Enteric tube placement COMPARISON: Previous day IMPRESSION: Single view abdomen obtained. Single enteric tube with tip at left upper quadrant the abdomen at expected location of the stomach. Electronically signed by: Arthur Carbajal MD (05/20/2019 1:35 AM) [id number]
--- NOTE | 2019-05-20 05:20 | RAD ---
INDICATION: Abdomen pain COMPARISON: April 16, 2018 TECHNIQUE: Axial CT images obtained through the abdomen and pelvis. One or more of the following individualized dose reduction techniques were utilized for this examination: 1. Automated exposure control; 2. Adjustment of the mA and/or kV according to patient size; 3. Use of iterative reconstruction technique. FINDINGS: Coronary artery calcific atherosclerosis partially seen. Enteric tube with tip in stomach. Calcific atherosclerosis. Fat-containing inguinal hernias are suspected. There are some vessels seen anterior to the liver which could be from collateral formation. No peripancreatic fluid collection. Spleen unremarkable. Urinary bladder is largely decompressed. No hydronephrosis. Cystic lesion right kidney. Postoperative changes to the distal colon. Dilated loops of small bowel identified with distal decompression degenerative changes the spine with multilevel central canal and neural foraminal stenosis. IMPRESSION: * Dilated small bowel loops with distal decompression which can be seen with small bowel obstruction. * There is some vessels seen anterior to the liver which could be secondary to collateral vessel formation. Would correlate for possible causes such as cirrhosis and portal hypertension. * Low-density lesions the right kidney which could be cystic in nature but incompletely evaluated on this exam. Electronically signed by: Arthur Carbajal MD (05/20/2019 5:18 AM) [id number]
[2019-05-20 08:00] VITALS: BP 170/87
[2019-05-20] MEDS ORDERED: MORPHINE SULFATE 4 MG/ML DISP.SYRIN. IV ONE (08:15)
== END 2019-05-20 08:13 | disposition home or self-care (01) ==
LOC: ER 23:14
DX: E86.0 Dehydration (principal); N39.0 Urinary tract infection, site not specified; D72.829 Elevated white blood cell count, unspecified; R74.0 Nonspecific elevation of levels of transaminase and lactic acid dehydrogenase [LDH]; J44.9 Chronic obstructive pulmonary disease, unspecified; K21.9 Gastro-esophageal reflux disease without esophagitis; I10 Essential (primary) hypertension; F17.210 Nicotine dependence, cigarettes, uncomplicated; Z90.49 Acquired absence of other specified parts of digestive tract; Z90.710 Acquired absence of both cervix and uterus
CPT/HCPCS: 36415; 74018; 74022; 74176; 80048; 80076; 80307; 81001; 82150; 82550; 83605; 83690; 84484; 85007; 85025; 85610; 85730; 87086; 93005; 96361; 96365; 96366; 96367; 96372; 96375; 99285; J0696; J1200; J2270; J2405; J3490; J7120

== ENCOUNTER → 2019-10-10 | Outpatient (CLI) | payer MEDICARE ==
[~2019-10-10] MED LIST changes: +BUDE10.2 IH; +CELE200C PO; +CLON-276 PO; +DIPH1TAB PO; +DIPH25CA58 PO; +DOXE6TAB3 PO; +FLUO20CA16 PO; +LEVO50TA72 PO; +MAGN250T10 PO; +QUET25TA5 PO; +RIFA550T4 PO; +TELM80TA PO; +UMEC1DIS IH; +ZINC50TA39 PO
== END | disposition home or self-care (01) ==
LOC: LAB 10:03
PROVIDERS: ATTEND Registered Nurse
DX: Z01.812 Encounter for preprocedural laboratory examination (principal); Z20.828 Contact with and (suspected) exposure to other viral communicable diseases; H26.9 Unspecified cataract
CPT/HCPCS: U0003-CS

== ENCOUNTER → 2019-10-14 | Day surgery (SDC) | payer MEDICARE ==
[~2019-10-14] MED LIST changes: +BALANCED SALT IRRIG OPHTH SOLN 15 ML BOTTLE. IRR ONE; +CATARACT OPHTH GEL 0.5 ML SYRINGE. OD ONE; +CHONDROIT-SOD-HYALURONATE KIT. OD ONE; +EPINEPHrine AMPULE 0.5 MG in BALANCED SALT IRRIG SOLN PLUS 500 ML IO ONE; +ERYTHROMYCIN 0.5% OPHTH OINTMENT 1GM TUBE. OD ONE; +HYALURONIDASE 75UNITS in LIDOCAINE 2% PF OPHTH 10 ML SYRINGE. OD ONE; +HYALURONIDASE 75UNITS in LIDOCAINE 2% PF OPHTH 10 ML SYRINGE. ONE; +IPRATRPIUM/ALBUTEROL 0.5/2.5MG 3 ML NEBU. NEB PRN; +IV RINGERS SOLUTION,LACTATED 1,000 ML IV SCH; +KETOROLAC TROMETHAMINE 0.5% OPHTH SOLUTION BOTTLE. OD SCH; +KETOROLAC TROMETHAMINE 0.5% OPHTH SOLUTION BOTTLE. ONE; +LIDO/EPI IN BSS OPHTH 4 ML SYRINGE OD ONE; +MIDAZOLAM HCL PF 2 MG/2 ML VIAL. IV ONE; +MOXIFLOXACIN 0.5% OPHTH SOLUTION 3ML BOTTLE. OD SCH; +ONDANSETRON PF 4 MG/2 ML VIAL. IV PRN; +PHENYLEPHRINE 10% OPHTH SOLUTION 5ML BOTTLE. OD PRN; +POVIDONE-IODINE 5% OPHTH SOLUTION 30ML BOTTLE. OD ONE; +PROPOFOL 10,000 MCG/ML (20ML) VIAL IV ONE; +TETRACAINE 0.5% OPHTH SOLUTION 4ML BOTTLE. OD ONE; +TETRACAINE 0.5% OPHTH SOLUTION 4ML BOTTLE. OU ONE; +prednisoLONE ACETATE 1% OPHTH SUSPENSION 5ML BOTTLE. OD SCH; +prednisoLONE ACETATE 1% OPHTH SUSPENSION 5ML BOTTLE. ONE
[2019-10-14] MEDS: MOXIFLOXACIN 0.5% OPHTH SOLUTION 3ML BOTTLE. OD SCH ×3 (08:15→08:25)
[2019-10-14 09:50] VITALS: BP 139/57
--- NOTE | 2019-11-18 11:56 | PDOC4 ---
Phaco IOL/IFIS w/o Ring/OD Date of Procedure: Nov 18, 2019 Preoperative Diagnosis: 1. Senile Cataract, Right Eye 2. Anticipated Intraoperative Floppy Iris Syndrome Postoperative Diagnosis: 1. Senile Cataract, Right Eye 2. Intraoperative Floppy Iris Syndrome Anesthesia: Local (Block) with monitored anesthesia care Surgeon: Stefano Dobson D.O. Procedure: Procdeure: Right Phacoemulsification with intraocular lens implant Findings: Senile Cataract Intraoperative Floppy Iris Syndrome Indications: Worsening vision interfering with patient's lifestyle Narrative: After discussing the risks, complications and alternatives, including but not limited to loss of vision, infection, bleeding, swelling, anesthetic reaction, capsule rupture with vitreous loss, etc., the patient was given a peribulbar block under mild IV sedation and cardiac monitoring. Pressure was applied to the eye for approximately 10 minutes. The patient was transferred to the main operating room and was prepped and draped in the usual sterile fashion and positioned under the microscope. A lid speculum was placed. A temporal clear corneal incision was made with a keratome and epi-Shugarcaine was injected into the anterior chamber, this was followed by injecting viscoelastic. A side port incision was made. A continuous tear capsulorrhexis was was performed, then hydrodissection was accomplished with balanced salt solution. The phacoemuls ification needle was placed in the eye and the nucleus was emulsified. The remaining cortical material was removed with the irrigation and aspiration apparatus. The capsule was polished as needed. The posterior capsule was noted to be clean and intact. Viscoelastic was injected into the eye inflating the capsular bag. An intraocular lens was injected into the eye, unfolding as desired and was positioned in the capsular bag. The viscoelastic was aspirated from the eye. The wound edges were hydrated with balanced salt solution and there were no leaks. Viscoelastic was injected over the limbal incisions. Antibiotic and steroid were placed on the eye. The lid speculum was removed, the eye patched shut and a Sweeney shield applied. There were no compilations and the patient was taken to the PACU in good condition. STEFANO DOBSON DO Nov 18, 2019 11:56
== END | disposition home or self-care (01) ==
LOC: SURG 07:39
PROVIDERS: ATTEND Ophthalmology
DX: H25.11 Age-related nuclear cataract, right eye (principal); H21.81 Floppy iris syndrome; E11.36 Type 2 diabetes mellitus with diabetic cataract; I10 Essential (primary) hypertension; J44.9 Chronic obstructive pulmonary disease, unspecified; M19.90 Unspecified osteoarthritis, unspecified site; F17.210 Nicotine dependence, cigarettes, uncomplicated; F32.9 Major depressive disorder, single episode, unspecified; Z98.890 Other specified postprocedural states; Z79.899 Other long term (current) drug therapy; Z88.8 Allergy status to other drugs, medicaments and biological substances; Z90.49 Acquired absence of other specified parts of digestive tract; Z91.041 Radiographic dye allergy status
CPT/HCPCS: 66984; J0171; J2704; V2632

== ENCOUNTER → 2019-10-31 | Outpatient (CLI) | payer MEDICARE ==
[2019-10-14 09:50] VITALS: BP 139/57
[~2019-10-31] MED LIST changes: -BALANCED SALT IRRIG OPHTH SOLN 15 ML BOTTLE. IRR ONE; -CATARACT OPHTH GEL 0.5 ML SYRINGE. OD ONE; -CHONDROIT-SOD-HYALURONATE KIT. OD ONE; -EPINEPHrine AMPULE 0.5 MG in BALANCED SALT IRRIG SOLN PLUS 500 ML IO ONE; -ERYTHROMYCIN 0.5% OPHTH OINTMENT 1GM TUBE. OD ONE; -HYALURONIDASE 75UNITS in LIDOCAINE 2% PF OPHTH 10 ML SYRINGE. OD ONE; -HYALURONIDASE 75UNITS in LIDOCAINE 2% PF OPHTH 10 ML SYRINGE. ONE; -IPRATRPIUM/ALBUTEROL 0.5/2.5MG 3 ML NEBU. NEB PRN; -IV RINGERS SOLUTION,LACTATED 1,000 ML IV SCH; -KETOROLAC TROMETHAMINE 0.5% OPHTH SOLUTION BOTTLE. OD SCH; -KETOROLAC TROMETHAMINE 0.5% OPHTH SOLUTION BOTTLE. ONE; -LIDO/EPI IN BSS OPHTH 4 ML SYRINGE OD ONE; -MIDAZOLAM HCL PF 2 MG/2 ML VIAL. IV ONE; -MOXIFLOXACIN 0.5% OPHTH SOLUTION 3ML BOTTLE. OD SCH; -ONDANSETRON PF 4 MG/2 ML VIAL. IV PRN; -PHENYLEPHRINE 10% OPHTH SOLUTION 5ML BOTTLE. OD PRN; -POVIDONE-IODINE 5% OPHTH SOLUTION 30ML BOTTLE. OD ONE; -PROPOFOL 10,000 MCG/ML (20ML) VIAL IV ONE; -TETRACAINE 0.5% OPHTH SOLUTION 4ML BOTTLE. OD ONE; -TETRACAINE 0.5% OPHTH SOLUTION 4ML BOTTLE. OU ONE; -prednisoLONE ACETATE 1% OPHTH SUSPENSION 5ML BOTTLE. OD SCH; -prednisoLONE ACETATE 1% OPHTH SUSPENSION 5ML BOTTLE. ONE
== END | disposition home or self-care (01) ==
LOC: LAB 08:38
PROVIDERS: ATTEND Registered Nurse
DX: Z20.828 Contact with and (suspected) exposure to other viral communicable diseases (principal)
CPT/HCPCS: U0003-CS

== ENCOUNTER → 2019-11-04 | Day surgery (SDC) | payer MEDICARE ==
[~2019-11-04] MED LIST changes: +BALANCED SALT IRRIG OPHTH SOLN 15 ML BOTTLE. IRR ONE; +CATARACT OPHTH GEL 0.5 ML SYRINGE. OS ONE; +CHONDROIT-SOD-HYALURONATE KIT. OS ONE; +EPINEPHrine AMPULE 0.5 MG in BALANCED SALT IRRIG SOLN PLUS 500 ML IO ONE; +ERYTHROMYCIN 0.5% OPHTH OINTMENT 1GM TUBE. OS ONE; +HYALURONIDASE 75UNITS in LIDOCAINE 2% PF OPHTH 10 ML SYRINGE. OS ONE; +IPRATRPIUM/ALBUTEROL 0.5/2.5MG 3 ML NEBU. NEB PRN; +IV RINGERS SOLUTION,LACTATED 1,000 ML IV SCH; +KETOROLAC TROMETHAMINE 0.5% OPHTH SOLUTION BOTTLE. ONE; +KETOROLAC TROMETHAMINE 0.5% OPHTH SOLUTION BOTTLE. OS SCH; +LIDO/EPI IN BSS OPHTH 4 ML SYRINGE OS ONE; +MIDAZOLAM HCL PF 2 MG/2 ML VIAL. IV ONE; +MOXIFLOXACIN 0.5% OPHTH SOLUTION 3ML BOTTLE. OS SCH; +ONDANSETRON PF 4 MG/2 ML VIAL. IV PRN; +POVIDONE-IODINE 5% OPHTH SOLUTION 30ML BOTTLE. OS ONE; +PROPOFOL 10,000 MCG/ML (20ML) VIAL IV ONE; +TETRACAINE 0.5% OPHTH SOLUTION 4ML BOTTLE. OS ONE; +TETRACAINE 0.5% OPHTH SOLUTION 4ML BOTTLE. OU ONE; +prednisoLONE ACETATE 1% OPHTH SUSPENSION 5ML BOTTLE. ONE; +prednisoLONE ACETATE 1% OPHTH SUSPENSION 5ML BOTTLE. OS SCH
[2019-11-04] MEDS: MOXIFLOXACIN 0.5% OPHTH SOLUTION 3ML BOTTLE. OS SCH ×3 (08:15→08:26)
--- NOTE | 2019-11-04 09:18 | PDOC4 ---
Phaco/IFIS w/o Ring/OS Date of Procedure: Nov 04, 2019 Preoperative Diagnosis: 1. Senile Cataract, Left Eye 2. Anticipated Intraoperative Floppy Iris Syndrome Posoperative Diagnosis: 1. Senile Cataract, Left Eye 2. Intraoperative Floppy Iris Syndrome Anesthesia: Local (Block) with monitored anesthesia care Surgeon: Stefano Dobson D.O. Procedure: Procdeure: Left Phacoemulsification with Intraocular Lens Implant Findings: Senile Cataract Intraoperative Floppy Iris Syndrome Indications: Worsening vision interfering with patient's lifestyle Narrative: After discussing the risks, complications and alternatives, including but not limited to loss of vision, infection, bleeding, swelling, anesthetic reaction, capsule rupture with vitreous loss, etc., the patient was given a peribulbar block under mild IV sedation and cardiac monitoring. Pressure was applied to the eye for approximately 10 minutes. The patient was transferred to the main operating room and was prepped and draped in the usual sterile fashion and positioned under the microscope. A lid speculum was placed. A temporal clear corneal incision was made with a keratome and epi-Shugarcaine was injected into the anterior chamber, this was followed by injecting viscoelastic. A side port incision was made. A continuous tear capsulorrhexis was performed, then hydrodissection was accomplished with balanced salt solution. The phacoemulsification needle was placed in the eye and the nucleus was emulsified. The remaining cortical material was removed with the irrigation and aspiration apparatus. The capsule was polished as needed. The posterior capsule was noted to be clean and intact. Viscoelastic was injected into the eye inflating the capsular bag. An intraocular lens was injected into the eye, unfolding as desired and was positioned in the capsular bag. The viscoelastic was aspirated from the eye. The wound edges were hydrated with balanced salt solution and there were no leaks. Viscoelastic was injected over the limbal incisions. Antibiotic and steroid were placed on the eye. The lid speculum was removed, the eye patched shut and a Sweeney shield applied. There were no complications and the patient was taken to the PACU in good condition. STEFANO DOBSON DO Nov 04, 2019 09:18
[2019-11-04 09:30] VITALS: BP 112/52
== END | disposition home or self-care (01) ==
LOC: SURG 07:58
PROVIDERS: ATTEND Ophthalmology
DX: H21.81 Floppy iris syndrome (principal); H25.812 Combined forms of age-related cataract, left eye; I11.9 Hypertensive heart disease without heart failure; K21.9 Gastro-esophageal reflux disease without esophagitis; J44.9 Chronic obstructive pulmonary disease, unspecified; F17.210 Nicotine dependence, cigarettes, uncomplicated; Z88.8 Allergy status to other drugs, medicaments and biological substances; Z79.899 Other long term (current) drug therapy; Z83.3 Family history of diabetes mellitus
CPT/HCPCS: 66982; J0171; J2704; V2632